=== PATIENT | male | born 1990 | race American Indian/Alaskan Native ===

== ENCOUNTER 2023-04-08 17:59 | Emergency (ER) | payer OTHER ==
[2023-04-08 18:47] VITALS: BP 140/92; PULSE 102
[2023-04-11 11:46] LABS: HBSAG SCREEN Negative (Negative)
== END 2023-04-08 19:20 | disposition home or self-care (01) ==
LOC: DL.ED 17:59
DX: Z77.21 Contact with and (suspected) exposure to potentially hazardous body fluids (principal); Y04.0XXA Assault by unarmed brawl or fight, initial encounter; Y92.89 Other specified places as the place of occurrence of the external cause; Y99.0 Civilian activity done for income or pay
CPT/HCPCS: 36415; 86803; 87340; 87389; 99282

== ENCOUNTER 2025-05-17 12:43 | Emergency (ER) | payer BC, OTHER ==
[2025-05-17] MEDS: Iopamidol 612 MG/ML 100 ML Bottle IVPUSH ONE (13:43)
[2025-05-17 13:52] LABS: BASOPHILS PERCENT AUTO 0.3 % (0.0-1.0); EOSINOPHILS PERCENT AUTO 0.5 % (1.0-3.0); LYMPHOCYTES PERCENT AUTO 33.8 % (20.5-50.1); MONOCYTES PERCENT AUTO 9.7 % (2-8); NEUTROPHILS PERCENT AUTO 55.7 % (42.2-75.2); PLATELET COUNT,PLT 361 10^3/uL (150-450); RED BLOOD CELL COUNT 6.04 10^6/uL (4.6-6.2); WHITE BLOOD CELL COUNT,WBC 8.7 10^3/uL (5.0-10.0)
[2025-05-17 13:53] LABS: BLOOD UREA NITROGEN,BUN 21.0 mg/dL (7-18); CARBON DIOXIDE,CO2 25.0 mmol/L (21-32); CHLORIDE,CL 106.0 mmol/L (98-107); CREATININE 1.34 mg/dL (0.70-1.30); EST CRCL DRUG DOSING (CG) 77.68 mL/min; GLUCOSE RANDOM 101.0 mg/dL (70-99); POTASSIUM,K 3.5 mmol/L (3.5-5.1); SODIUM,NA 143.0 mmol/L (136-145)
[2025-05-17 13:54] LABS: ESTIMATED GFR 71.0 mL/min (>=60)
[2025-05-17] MEDS ORDERED: Ondansetron 4 MG/2 ML SDV ONE (14:02)
[2025-05-17] MEDS ORDERED: Ondansetron 4 MG/2 ML SDV IVPUSH ONE (14:03)
[2025-05-17 14:52] LABS: APPEARANCE,URINE CLEAR (CLEAR); GLUCOSE,URINE NEGATIVE (NEGATIVE); OCCULT BLOOD,URINE NEGATIVE (NEGATIVE)
[2025-05-17 15:02] LABS: EPITHELIAL CELLS,URINE NOT SEEN /HPF (NOT SEEN)
== END 2025-05-17 15:45 ==
LOC: DL.ED 12:43
DX: S31.31XA Laceration without foreign body of scrotum and testes, initial encounter (principal); T75.3XXA Motion sickness, initial encounter; W11.XXXA Fall on and from ladder, initial encounter
CPT/HCPCS: 36415; 74177; 80048; 81001; 85025; 96374; 99284; 99285; Q9967